=== PATIENT | female | born 1970 | race African-American/Black ===

== ENCOUNTER 2017-12-06 22:12 | Emergency (ER) | payer SELFPAY ==
[~2017-12-06] VITALS: Ht 162.6 cm; Wt 55.4 kg
[~2017-12-06 22:12] MED LIST: ALPR0.5T PO; METO5TAB86 PO; OMEP20CA4 PO; ONDA4TAB5 PO
[2017-12-07] MEDS ORDERED: VISCOUS LIDOCAINE 2% 15 ML UDC PO STA (00:37)
[2017-12-07] MEDS ORDERED: SODIUM CHLORIDE 0.9% 1,000 ML IV ONE (00:37)
[2017-12-07] MEDS ORDERED: ONDANSETRON HCL 4MG/2ML VIAL IV STA (00:37)
[2017-12-07] MEDS ORDERED: MAGNESIUM/ALUMINUM HYDROXIDE/SIMETHICONE 30ML UDC PO STA (00:37)
[2017-12-07] MEDS ORDERED: KETOROLAC 30MG/ML VIAL IV STA (00:37)
[2017-12-07 01:02] LABS: BASOPHILS % 0.5 % (0.0-2.0); EOSINOPHILS % 1.6 % (0.0-5.0); HEMATOCRIT. 38.9 % (36.0-48.0); HEMOGLOBIN. 13.1 g/dL (12.0-16.0); LYMPHOCYTES % 25.9 % (20.0-50.0); MEAN CORPUSCULAR HEMOGLOBIN 29.4 pg (28.0-32.0); MEAN CORPUSCULAR VOLUME 86.9 fL (81.0-99.0); MEAN PLATELET VOLUME 7.5 fl (7.4-10.4); MONOCYTES % 6.7 % (2.0-8.0); NEUTROPHILS % 65.3 % (40.0-76.0); PLATELET 413 x1000/uL (130-400); RED BLOOD CELL COUNT 4.47 mill/uL (4.2-5.4)
[2017-12-07 01:08] LABS: CHLORIDE 101 mEq/L (98-107)
[2017-12-07 01:13] LABS: ETHANOL BLOOD < 10 mg/dL
[2017-12-07 01:22] VITALS: BP 123/65
[2017-12-07] MEDS ORDERED: MORPHINE SULFATE 10 MG/ML CPJ IM ONE (02:00)
[2017-12-07] MEDS ORDERED: VISCOUS LIDOCAINE 2% 15 ML UDC PO NR (02:15)
[2017-12-07] MEDS ORDERED: MAGNESIUM/ALUMINUM HYDROXIDE/SIMETHICONE 30ML UDC PO NR (02:15)
== END 2017-12-07 02:57 | disposition left against medical advice (07) ==
LOC: ER 22:12
DX: R10.32 Left lower quadrant pain (principal); G89.29 Other chronic pain; F17.200 Nicotine dependence, unspecified, uncomplicated; Z88.5 Allergy status to narcotic agent
CPT/HCPCS: 36415; 80053; 83690; 85025; 96374; 96375; 99284; G0482; J1885; J2405; J7030; Z7610